=== PATIENT | male | born 1985 | race African-American/Black ===

== ENCOUNTER 2018-01-05 17:58 | Emergency (ER) | payer OTHER ==
[~2018-01-05] VITALS: Ht 190.5 cm; Wt 83.9 kg
[~2018-01-05 17:58] MED LIST: AMOXICILLIN875 MG PO; CLEOCIN HCL150 MG PO; CLINDAMYCIN HC150 MG PO; IBUPROFEN 600600 M1 PO; NOHOMEMEDICATIONS; NORCO 5-325 TA1 EACH PO; PERCOCET 5-3251 EACH PO; VALIUM5 MG PO
[2018-01-05] MEDS ORDERED: ROBAXIN500 MG PO (19:39)
[2018-01-05 20:00] VITALS: BP 140/98
== END 2018-01-05 20:00 | disposition home or self-care (01) ==
LOC: ER 17:58
DX: S16.1XXA Strain of muscle, fascia and tendon at neck level, initial encounter (principal); S20.211A Contusion of right front wall of thorax, initial encounter; J45.909 Unspecified asthma, uncomplicated; V89.2XXA Person injured in unspecified motor-vehicle accident, traffic, initial encounter; Y93.89 Activity, other specified; Y92.89 Other specified places as the place of occurrence of the external cause; Y99.8 Other external cause status

== ENCOUNTER 2018-03-09 22:03 | Emergency (ER) | payer OTHER ==
[~2018-03-09] VITALS: Ht 193 cm; Wt 70.3 kg
[~2018-03-09 22:03] MED LIST changes: +ROBAXIN500 MG PO
[2018-03-09] MEDS ORDERED: TYLENOL WITH CO1 TA1 (22:40)
[2018-03-10] MEDS ORDERED: PREDNISONE 20 M20 MG PO (00:04)
[2018-03-10] MEDS ORDERED: BENADRYL25 MG PO (00:04)
[2018-03-10] MEDS ORDERED: PEPCID20 MG PO (00:04)
[2018-03-10 00:19] VITALS: BP 110/82
== END 2018-03-09 23:59 | disposition home or self-care (01) ==
LOC: ER 22:03
DX: T78.3XXA Angioneurotic edema, initial encounter (principal); F17.210 Nicotine dependence, cigarettes, uncomplicated; J45.909 Unspecified asthma, uncomplicated; Z88.8 Allergy status to other drugs, medicaments and biological substances; Z88.0 Allergy status to penicillin

== ENCOUNTER 2019-08-01 09:31 | Emergency (ER) | payer OTHER ==
[~2019-08-01] VITALS: Ht 195.6 cm; Wt 79.4 kg
[2019-08-01 09:31] VITALS: BP 167/107
[~2019-08-01 09:31] MED LIST changes: +BENADRYL25 MG PO; +PEPCID20 MG PO; +PREDNISONE 20 M20 MG PO; +TYLENOL WITH CO1 TA1
[2019-08-01] MEDS ORDERED: IBUPROFEN 600600 M1 PO (11:21)
[2019-08-01] MEDS ORDERED: ULTRAM 50MG TAB50 MG PO (11:21)
[2019-08-01] MEDS ORDERED: CLEOCIN HCL150 MG PO (11:21)
== END 2019-08-01 12:09 | disposition home or self-care (01) ==
LOC: ER 09:31
DX: K04.7 Periapical abscess without sinus (principal); K02.9 Dental caries, unspecified; J45.909 Unspecified asthma, uncomplicated; F17.210 Nicotine dependence, cigarettes, uncomplicated; Z88.0 Allergy status to penicillin; Z88.8 Allergy status to other drugs, medicaments and biological substances

== ENCOUNTER 2020-07-04 04:51 | Emergency (ER) | payer OTHER ==
[~2020-07-04] VITALS: Ht 193 cm; Wt 81.7 kg
[~2020-07-04 04:51] MED LIST changes: +ULTRAM 50MG TAB50 MG PO
[2020-07-04] MEDS ORDERED: IBUPROFEN 600600 M1 PO (05:10)
[2020-07-04] MEDS ORDERED: NORCO 5-325 TA1 EAC2 PO (05:10)
[2020-07-04] MEDS ORDERED: CLEOCIN HCL150 M1 PO (05:10)
[2020-07-04 05:25] VITALS: BP 122/84
== END 2020-07-04 05:27 | disposition home or self-care (01) ==
LOC: ER 04:51
DX: K04.7 Periapical abscess without sinus (principal); J45.909 Unspecified asthma, uncomplicated; F17.210 Nicotine dependence, cigarettes, uncomplicated; Z88.0 Allergy status to penicillin; Z88.8 Allergy status to other drugs, medicaments and biological substances

== ENCOUNTER 2020-10-25 00:50 | Emergency (ER) | payer OTHER ==
[~2020-10-25] VITALS: Ht 193 cm; Wt 81.7 kg
[~2020-10-25 00:50] MED LIST changes: +CLEOCIN HCL150 M1 PO; +NORCO 5-325 TA1 EAC2 PO
[2020-10-25 01:06] VITALS: BP 132/97
[2020-10-25] MEDS ORDERED: HYDROCODON-ACE1 EAC7 PO (01:16)
[2020-10-25] MEDS ORDERED: CLEOCIN HCL150 MG PO (01:16)
== END 2020-10-25 01:30 | disposition home or self-care (01) ==
LOC: ER 00:50
DX: K04.7 Periapical abscess without sinus (principal); J45.909 Unspecified asthma, uncomplicated; F17.210 Nicotine dependence, cigarettes, uncomplicated; Z79.2 Long term (current) use of antibiotics; Z79.1 Long term (current) use of non-steroidal anti-inflammatories (NSAID); Z79.899 Other long term (current) drug therapy; Z88.0 Allergy status to penicillin; Z88.8 Allergy status to other drugs, medicaments and biological substances